=== PATIENT | male | born 1965 | race Caucasian/White ===

== ENCOUNTER 2021-03-24 20:22 | Inpatient (IN) | payer OTHER ==
[2021-03-24] MEDS: ALBUTEROL SO4 2.5/IPRATROPIUM 0.5 INH SOL 3 ML VIAL.NEB. NEB SCH ×2 (21:15→22:16)
[2021-03-24] MEDS ORDERED: DEXAMETHASONE SOD PHOSPHATE 10 MG/1 ML VIAL IVPUSH ONE (21:16)
[2021-03-24 22:28] LABS: BASO % 2.5 % (0-2.0); EOS % 0.4 % (0-4.5); HEMATOCRIT 37.8 % (35.4-49); HEMOGLOBIN 12.5 GM/dL (11.7-16.9); LYMPH % 9.6 % (8-40); MCH 29.7 pg (25.7-33.7); MEAN PLT VOLUME 8.6 fl (7.5-11.1); MONO % 10.3 % (3.8-10.2); NEUT % 77.2 % (42.8-82.8); PLATELET COUNT 225 10^3/uL (134-434); RDW 13.8 % (11.9-15.9)
[2021-03-24 22:34] LABS: INR 1.11 (0.83-1.09); PROTHROMBIN TIME (PATIENT) 12.4 SEC (9.7-13.0)
[2021-03-24 22:51] LABS: CHLORIDE 98 mmol/L (98-107); SODIUM 135 mmol/L (136-145)
[2021-03-24 22:55] LABS: ALBUMIN 3.4 g/dl (3.4-5.0); CALCIUM 9.1 mg/dL (8.5-10.1)
[2021-03-24 22:57] LABS: ANION GAP 8 MMOL/L (8-16); BLOOD UREA NITROGEN 16.2 mg/dL (7-18); CO2 29 mmol/L (21-32); GLUCOSE,RANDOM 228 mg/dL (74-106); MAGNESIUM 2.4 mg/dL (1.8-2.4)
[2021-03-24 22:58] LABS: CREATININE 0.8 mg/dL (0.55-1.3)
[2021-03-24 22:59] LABS: SGOT/AST 57 U/L (15-37); SGPT/ALT 92 U/L (13-61)
[2021-03-24 23:01] LABS: ALK PHOS 244 U/L (45-117); BILIRUBIN,TOTAL 0.7 mg/dL (0.2-1); TOT PROT 6.4 g/dl (6.4-8.2)
[2021-03-25] MEDS: ALBUTEROL SO4 2.5/IPRATROPIUM 0.5 INH SOL 3 ML VIAL.NEB. NEB SCH (09:55)
[2021-03-25] MEDS: propRANOLol HCL 10 MG TABLET PO SCH ×2 (09:55→21:42)
[2021-03-25] MEDS: methylPREDNISolone NA SUCC 40 MG/1 ML VIAL IVPUSH SCH ×2 (10:56→19:45)
[2021-03-25] MEDS: cloNIDine HCL 0.1 MG TABLET PO SCH ×2 (10:56→21:42)
[2021-03-25] MEDS: HEPARIN NA (PORCINE) 5,000 UNITS/ML 1ML VIAL SQ SCH ×2 (14:56→21:42)
[2021-03-25] MEDS ORDERED: propRANOLol HCL 10 MG TABLET ONE (14:59)
[2021-03-25] MEDS ORDERED: ALBUTEROL SO4 2.5/IPRATROPIUM 0.5 INH SOL 3 ML VIAL.NEB. NEB ONE (14:59)
[2021-03-25] MEDS ORDERED: cloNIDine HCL 0.1 MG TABLET ONE (14:59)
[2021-03-25] MEDS ORDERED: HEPARIN NA (PORCINE) 5,000 UNITS/ML 1ML VIAL ONE (15:00)
[2021-03-25] MEDS: LIDOCAINE 5% TOPICAL PATCH TP SCH (19:50)
[2021-03-25] MEDS: LIDOCAINE PATCH REMOVAL MC SCH (21:43)
[2021-03-26] MEDS: methylPREDNISolone NA SUCC 40 MG/1 ML VIAL IVPUSH SCH ×3 (03:31→17:05)
[2021-03-26] MEDS: ALBUTEROL SO4 2.5/IPRATROPIUM 0.5 INH SOL 3 ML VIAL.NEB. NEB PRN ×2 (03:46→11:20)
[2021-03-26] MEDS: HEPARIN NA (PORCINE) 5,000 UNITS/ML 1ML VIAL SQ SCH ×3 (05:39→21:14)
[2021-03-26] MEDS: cloNIDine HCL 0.1 MG TABLET PO SCH ×2 (09:40→21:13)
[2021-03-26] MEDS: propRANOLol HCL 10 MG TABLET PO SCH ×2 (09:41→20:52)
[2021-03-26] MEDS: LIDOCAINE 5% TOPICAL PATCH TP SCH (09:41)
[2021-03-26] MEDS: ALBUTEROL SO4 2.5/IPRATROPIUM 0.5 INH SOL 3 ML VIAL.NEB. NEB SCH ×3 (11:20→20:51)
[2021-03-26] MEDS ORDERED: cefTRIAXone SODIUM 1 GM VIAL ONE (12:24)
[2021-03-26] MEDS ORDERED: DEXTROSE 5%-WATER - 50 ML IVPB ONE (12:24)
[2021-03-26] MEDS: CEFTRIAXONE 1 GM in DEXTROSE 5%-WATER - 50 ML IVPB SCH (12:50)
[2021-03-26] MEDS: AZITHROMYCIN IVPB 500 MG/250 ML BAG IVPB SCH (13:28)
[2021-03-26] MEDS: LIDOCAINE PATCH REMOVAL MC SCH (21:37)
[2021-03-27] MEDS: methylPREDNISolone NA SUCC 40 MG/1 ML VIAL IVPUSH SCH ×2 (01:35→09:18)
[2021-03-27] MEDS: HEPARIN NA (PORCINE) 5,000 UNITS/ML 1ML VIAL SQ SCH ×3 (06:10→22:57)
[2021-03-27] MEDS: ALBUTEROL SO4 2.5/IPRATROPIUM 0.5 INH SOL 3 ML VIAL.NEB. NEB SCH ×4 (08:43→20:03)
[2021-03-27] MEDS ORDERED: cefTRIAXone SODIUM 1 GM VIAL ONE (08:51)
[2021-03-27] MEDS ORDERED: DEXTROSE 5%-WATER - 50 ML IVPB ONE (08:51)
[2021-03-27] MEDS: ACETAMINOPHEN 325 MG TABLET (FP) PO PRN ×2 (09:15→17:23)
[2021-03-27] MEDS: oxyCODONE HCL 5 MG TABLET PO PRN (09:15)
[2021-03-27] MEDS: CEFTRIAXONE 1 GM in DEXTROSE 5%-WATER - 50 ML IVPB SCH (09:17)
[2021-03-27] MEDS: LIDOCAINE 5% TOPICAL PATCH TP SCH (09:18)
[2021-03-27] MEDS: cloNIDine HCL 0.1 MG TABLET PO SCH ×2 (09:19→22:56)
[2021-03-27] MEDS: propRANOLol HCL 10 MG TABLET PO SCH ×2 (09:19→21:30)
[2021-03-27] MEDS: AZITHROMYCIN IVPB 500 MG/250 ML BAG IVPB SCH (10:16)
[2021-03-27] MEDS: LIDOCAINE PATCH REMOVAL MC SCH (22:58)
[2021-03-28] MEDS: oxyCODONE HCL 5 MG TABLET PO PRN ×4 (04:17→21:01)
[2021-03-28] MEDS: HEPARIN NA (PORCINE) 5,000 UNITS/ML 1ML VIAL SQ SCH ×3 (06:02→21:00)
[2021-03-28] MEDS: ALBUTEROL SO4 2.5/IPRATROPIUM 0.5 INH SOL 3 ML VIAL.NEB. NEB SCH ×4 (07:59→19:53)
[2021-03-28] MEDS: ACETAMINOPHEN 325 MG TABLET (FP) PO PRN ×2 (08:38→14:30)
[2021-03-28] MEDS: propRANOLol HCL 10 MG TABLET PO SCH ×2 (08:39→21:01)
[2021-03-28 09:20] LABS: BASO % 1.2 % (0-2.0); EOS % 0.2 % (0-4.5); HEMATOCRIT 40.1 % (35.4-49); HEMOGLOBIN 13.2 GM/dL (11.7-16.9); MCH 29.4 pg (25.7-33.7); MCHC 32.8 g/dl (32.0-35.9); MEAN CELL VOLUME 89.7 fl (80-96); MEAN PLT VOLUME 8.7 fl (7.5-11.1); MONO % 8.9 % (3.8-10.2); NEUT % 81.7 % (42.8-82.8); PLATELET COUNT 246 10^3/uL (134-434); RBC 4.47 M/mm3 (4.00-5.60); RDW 13.8 % (11.9-15.9); WHITE BLOOD COUNT 10.7 K/mm3 (4.0-10.0)
[2021-03-28 09:28] LABS: INR 1.1 (0.83-1.09); PROTHROMBIN TIME (PATIENT) 12.3 SEC (9.7-13.0)
[2021-03-28 09:30] LABS: ACTIVATED PTT 25.3 SECONDS (25.2-36.5)
[2021-03-28 09:35] LABS: ALBUMIN 3.2 g/dl (3.4-5.0); CALCIUM 9.3 mg/dL (8.5-10.1)
[2021-03-28 09:36] LABS: BLOOD UREA NITROGEN 14.8 mg/dL (7-18)
[2021-03-28 09:38] LABS: CREATININE 0.9 mg/dL (0.55-1.3); URIC ACID 7.5 mg/dL (2.6-7.2)
[2021-03-28 09:40] LABS: BILIRUBIN,TOTAL 0.8 mg/dL (0.2-1); TOT PROT 6.4 g/dl (6.4-8.2)
[2021-03-28] MEDS: LIDOCAINE 5% TOPICAL PATCH TP SCH (10:43)
[2021-03-28] MEDS: cloNIDine HCL 0.1 MG TABLET PO SCH ×2 (10:43→21:00)
[2021-03-28] MEDS ORDERED: PT OWN MED DRAWER 7, Y5N ONE (11:45)
[2021-03-28] MEDS: DEXAMETHASONE SOD PHOSPHATE 4 MG/1 ML VIAL IVPB SCH (21:00)
[2021-03-28] MEDS: LIDOCAINE PATCH REMOVAL MC SCH (21:02)
[2021-03-28] MEDS: levETIRAcetam 500 MG/5 ML INJECTION VIAL IVPB SCH (21:02)
[2021-03-28] MEDS: BUDESONIDE/FORMETEROL FUMARATE 160/4.5 mcg INHALER IH SCH (22:05)
[2021-03-29] MEDS: oxyCODONE HCL 5 MG TABLET PO PRN ×5 (02:10→20:13)
[2021-03-29] MEDS: SENNOSIDES 8.6MG TABLET (FP) PO PRN (02:10)
[2021-03-29] MEDS: ACETAMINOPHEN 325 MG TABLET (FP) PO PRN ×3 (03:49→17:02)
[2021-03-29] MEDS: HEPARIN NA (PORCINE) 5,000 UNITS/ML 1ML VIAL SQ SCH ×3 (05:46→21:07)
[2021-03-29] MEDS: cloNIDine HCL 0.1 MG TABLET PO SCH ×3 (06:48→21:07)
[2021-03-29] MEDS: ALBUTEROL SO4 2.5/IPRATROPIUM 0.5 INH SOL 3 ML VIAL.NEB. NEB SCH ×4 (08:43→19:42)
[2021-03-29] MEDS: DEXAMETHASONE SOD PHOSPHATE 4 MG/1 ML VIAL IVPB SCH ×2 (09:38→21:07)
[2021-03-29] MEDS: levETIRAcetam 500 MG/5 ML INJECTION VIAL IVPB SCH ×2 (09:38→21:48)
[2021-03-29] MEDS: propRANOLol HCL 10 MG TABLET PO SCH ×2 (09:38→21:07)
[2021-03-29] MEDS: LIDOCAINE 5% TOPICAL PATCH TP SCH (09:43)
[2021-03-29] MEDS: BUDESONIDE/FORMETEROL FUMARATE 160/4.5 mcg INHALER IH SCH ×2 (09:51→21:08)
[2021-03-29] MEDS: TIOTROPIUM BROMIDE 2.5 MCG (SPIRIVA) RESPIMAT INHALER IH SCH (09:51)
[2021-03-29] MEDS ORDERED: ACETAMINOPHEN 325 MG TABLET (FP) PO ONE (20:25)
[2021-03-29] MEDS: LIDOCAINE PATCH REMOVAL MC SCH (21:07)
[2021-03-30] MEDS: oxyCODONE HCL 5 MG TABLET PO PRN ×6 (03:23→21:39)
[2021-03-30] MEDS: HEPARIN NA (PORCINE) 5,000 UNITS/ML 1ML VIAL SQ SCH ×3 (06:22→21:35)
[2021-03-30] MEDS: ALBUTEROL SO4 2.5/IPRATROPIUM 0.5 INH SOL 3 ML VIAL.NEB. NEB PRN ×2 (06:43→20:51)
[2021-03-30] MEDS: ALBUTEROL SO4 2.5/IPRATROPIUM 0.5 INH SOL 3 ML VIAL.NEB. NEB SCH (08:30)
[2021-03-30] MEDS: propRANOLol HCL 10 MG TABLET PO SCH ×2 (08:38→21:35)
[2021-03-30] MEDS: cloNIDine HCL 0.1 MG TABLET PO SCH ×2 (10:25→21:35)
[2021-03-30] MEDS: levETIRAcetam 500 MG/5 ML INJECTION VIAL IVPB SCH ×2 (10:25→21:38)
[2021-03-30] MEDS: DEXAMETHASONE SOD PHOSPHATE 4 MG/1 ML VIAL IVPB SCH ×2 (10:25→21:37)
[2021-03-30] MEDS: TIOTROPIUM BROMIDE 2.5 MCG (SPIRIVA) RESPIMAT INHALER IH SCH (10:26)
[2021-03-30] MEDS: LIDOCAINE 5% TOPICAL PATCH TP SCH (10:26)
[2021-03-30] MEDS: BUDESONIDE/FORMETEROL FUMARATE 160/4.5 mcg INHALER IH SCH ×2 (10:26→21:39)
[2021-03-30] MEDS: ALLOPURINOL 300 MG TABLET (FP) PO SCH (21:35)
[2021-03-30] MEDS: LIDOCAINE PATCH REMOVAL MC SCH (21:39)
[2021-03-31] MEDS: oxyCODONE HCL 5 MG TABLET PO PRN ×4 (03:11→19:54)
[2021-03-31 04:16] LABS: INR 1.03 (0.83-1.09); PROTHROMBIN TIME (PATIENT) 11.9 SEC (9.7-13.0)
[2021-03-31 04:19] LABS: ACTIVATED PTT 26.3 SECONDS (25.2-36.5)
[2021-03-31] MEDS: HEPARIN NA (PORCINE) 5,000 UNITS/ML 1ML VIAL SQ SCH ×3 (05:21→22:05)
[2021-03-31] MEDS ORDERED: morphine SULFATE 4 MG/ML VIAL IVPUSH ONE (07:47)
[2021-03-31 08:21] LABS: BASO % 0.9 % (0-2.0); EOS % 0.1 % (0-4.5); HEMATOCRIT 34.4 % (35.4-49); HEMOGLOBIN 11.8 GM/dL (11.7-16.9); LYMPH % 6.9 % (8-40); MCH 30.6 pg (25.7-33.7); MCHC 34.3 g/dl (32.0-35.9); MEAN CELL VOLUME 89.2 fl (80-96); MEAN PLT VOLUME 8.6 fl (7.5-11.1); MONO % 8.1 % (3.8-10.2); PLATELET COUNT 184 10^3/uL (134-434); RBC 3.86 M/mm3 (4.00-5.60); RDW 14.2 % (11.9-15.9); WHITE BLOOD COUNT 9.2 K/mm3 (4.0-10.0)
[2021-03-31 08:57] LABS: CHLORIDE 96 mmol/L (98-107); SODIUM 135 mmol/L (136-145)
[2021-03-31 09:07] LABS: CALCIUM 8.9 mg/dL (8.5-10.1)
[2021-03-31 09:08] LABS: ANION GAP 11 MMOL/L (8-16); CO2 28 mmol/L (21-32); GLUCOSE,RANDOM 180 mg/dL (74-106)
[2021-03-31 09:10] LABS: CREATININE 0.7 mg/dL (0.55-1.3)
[2021-03-31 09:11] LABS: SGOT/AST 74 U/L (15-37); SGPT/ALT 172 U/L (13-61)
[2021-03-31 09:12] LABS: TOT PROT 5.8 g/dl (6.4-8.2)
[2021-03-31 09:14] LABS: ALK PHOS 279 U/L (45-117)
[2021-03-31 10:42] LABS: PHOSPHOROUS 3.3 mg/dL (2.5-4.9)
[2021-03-31 10:43] LABS: LDH 862 U/L (87-246)
[2021-03-31] MEDS: cloNIDine HCL 0.1 MG TABLET PO SCH ×2 (10:44→22:05)
[2021-03-31] MEDS: ALLOPURINOL 300 MG TABLET (FP) PO SCH (10:44)
[2021-03-31] MEDS: LIDOCAINE 5% TOPICAL PATCH TP SCH (10:44)
[2021-03-31] MEDS: levETIRAcetam 500 MG/5 ML INJECTION VIAL IVPB SCH ×2 (10:44→22:05)
[2021-03-31] MEDS: propRANOLol HCL 10 MG TABLET PO SCH ×2 (10:44→22:06)
[2021-03-31] MEDS: PANTOPRAZOLE SODIUM 40 MG VIAL IVPB SCH ×2 (10:44)
[2021-03-31] MEDS: SODIUM CHLORIDE 1,000 ML IV SCH (10:44)
[2021-03-31] MEDS: DEXAMETHASONE SOD PHOSPHATE 4 MG/1 ML VIAL IVPB SCH (10:44)
[2021-03-31] MEDS: TIOTROPIUM BROMIDE 2.5 MCG (SPIRIVA) RESPIMAT INHALER IH SCH (10:45)
[2021-03-31] MEDS: BUDESONIDE/FORMETEROL FUMARATE 160/4.5 mcg INHALER IH SCH ×2 (10:45→22:06)
[2021-03-31] MEDS ORDERED: FOSAPREPITANT DIMEGLUMINE 150 MG in SODIUM CHLORIDE 145 ML IVPB ONE (14:00)
[2021-03-31] MEDS ORDERED: DEXAMETHASONE SOD PHOSPHATE 20 MG/5 ML VIAL IVPB ONE (14:00)
[2021-03-31] MEDS ORDERED: PALONOSETRON HCL 0.25 MG/5 ML VIAL IVPUSH ONE (14:00)
[2021-03-31] MEDS ORDERED: DEXAMETHASONE INJECTION 12 MG in SODIUM CHLORIDE 50 ML IVPUSH ONE (14:15)
[2021-03-31] MEDS ORDERED: SODIUM CHLORIDE IVPB ONE (14:30)
[2021-03-31] MEDS ORDERED: CARBOPLATIN IVPB ONE (14:30)
[2021-03-31] MEDS ORDERED: ETOPOSIDE IV ONE ×2 (15:00→17:30)
[2021-03-31] MEDS ORDERED: SODIUM CHLORIDE IV ONE ×2 (15:00→17:30)
[2021-03-31] MEDS: ALBUTEROL SO4 2.5/IPRATROPIUM 0.5 INH SOL 3 ML VIAL.NEB. NEB PRN (20:09)
[2021-03-31] MEDS: LIDOCAINE PATCH REMOVAL MC SCH (22:06)
[2021-04-01] MEDS: oxyCODONE HCL 5 MG TABLET PO PRN ×3 (00:43→18:46)
[2021-04-01] MEDS: DEXAMETHASONE SOD PHOSPHATE 4 MG/1 ML VIAL IVPB SCH ×3 (01:01→21:40)
[2021-04-01] MEDS: HEPARIN NA (PORCINE) 5,000 UNITS/ML 1ML VIAL SQ SCH ×3 (06:47→21:40)
[2021-04-01] MEDS: ALBUTEROL SO4 2.5/IPRATROPIUM 0.5 INH SOL 3 ML VIAL.NEB. NEB PRN (07:20)
[2021-04-01 08:33] LABS: HEMATOCRIT 34.9 % (35.4-49); HEMOGLOBIN 11.4 GM/dL (11.7-16.9); MCH 29.6 pg (25.7-33.7); MCHC 32.7 g/dl (32.0-35.9); MEAN CELL VOLUME 90.3 fl (80-96); MEAN PLT VOLUME 8.9 fl (7.5-11.1); PLATELET COUNT 195 10^3/uL (134-434); RBC 3.86 M/mm3 (4.00-5.60); RDW 14.2 % (11.9-15.9); WHITE BLOOD COUNT 11.7 K/mm3 (4.0-10.0)
[2021-04-01 08:56] LABS: BLOOD UREA NITROGEN 16.7 mg/dL (7-18); CALCIUM 8.7 mg/dL (8.5-10.1)
[2021-04-01 08:59] LABS: CREATININE 0.7 mg/dL (0.55-1.3); URIC ACID 4.4 mg/dL (2.6-7.2)
[2021-04-01 09:01] LABS: TOT PROT 5.9 g/dl (6.4-8.2)
[2021-04-01] MEDS: cloNIDine HCL 0.1 MG TABLET PO SCH ×2 (09:02→21:40)
[2021-04-01] MEDS: ALLOPURINOL 300 MG TABLET (FP) PO SCH (09:03)
[2021-04-01] MEDS: PANTOPRAZOLE SODIUM 40 MG VIAL IVPB SCH (09:03)
[2021-04-01] MEDS: SODIUM CHLORIDE 1,000 ML IV SCH ×2 (09:03→16:15)
[2021-04-01] MEDS: propRANOLol HCL 10 MG TABLET PO SCH ×2 (09:03→21:40)
[2021-04-01] MEDS: levETIRAcetam 500 MG/5 ML INJECTION VIAL IVPB SCH ×2 (09:03→23:01)
[2021-04-01] MEDS: TIOTROPIUM BROMIDE 2.5 MCG (SPIRIVA) RESPIMAT INHALER IH SCH (09:04)
[2021-04-01] MEDS: LIDOCAINE 5% TOPICAL PATCH TP SCH (09:04)
[2021-04-01] MEDS: BUDESONIDE/FORMETEROL FUMARATE 160/4.5 mcg INHALER IH SCH ×2 (09:04→21:50)
[2021-04-01] MEDS: INSULIN (LEVEMIR) 100 UNITS/ML UNITS SQ SCH ×2 (11:10→21:40)
[2021-04-01 12:10] LABS: ANISOCYTOSIS 0; HELMET CELLS 0; HOWELL-JOLLY BODIES 0; MACROCYTOSIS 0; OVALOCYTE 0; PLATELET ESTIMATE NORMAL; ROULEAU 0; SICKELED CELLS 0; TARGET CELLS 0; TEAR DROP CELLS 0; TOXIC GRANULATION 0
[2021-04-01] MEDS: amLODIPine BESYLATE 10 MG TABLET (FP) PO SCH (12:29)
[2021-04-01] MEDS: INSULIN SLIDING SCALE (NOVOLOG) 1 VIAL SQ SCH ×2 (16:28→21:39)
[2021-04-01] MEDS: LIDOCAINE PATCH REMOVAL MC SCH (21:50)
[2021-04-02] MEDS: HEPARIN NA (PORCINE) 5,000 UNITS/ML 1ML VIAL SQ SCH ×3 (05:30→21:00)
[2021-04-02] MEDS: oxyCODONE HCL 5 MG TABLET PO PRN ×4 (05:58→19:53)
[2021-04-02] MEDS: INSULIN SLIDING SCALE (NOVOLOG) 1 VIAL SQ SCH ×4 (06:00→21:00)
[2021-04-02] MEDS: INSULIN (LEVEMIR) 100 UNITS/ML UNITS SQ SCH ×2 (06:00→21:01)
[2021-04-02] MEDS: ALBUTEROL SO4 2.5/IPRATROPIUM 0.5 INH SOL 3 ML VIAL.NEB. NEB PRN (07:30)
[2021-04-02] MEDS: propRANOLol HCL 10 MG TABLET PO SCH ×2 (08:41→21:00)
[2021-04-02] MEDS: levETIRAcetam 500 MG/5 ML INJECTION VIAL IVPB SCH ×2 (09:42→22:36)
[2021-04-02] MEDS: DEXAMETHASONE SOD PHOSPHATE 4 MG/1 ML VIAL IVPB SCH ×2 (09:42→21:00)
[2021-04-02] MEDS: amLODIPine BESYLATE 10 MG TABLET (FP) PO SCH (09:42)
[2021-04-02] MEDS: LIDOCAINE 5% TOPICAL PATCH TP SCH (09:42)
[2021-04-02] MEDS: ALLOPURINOL 300 MG TABLET (FP) PO SCH (09:42)
[2021-04-02] MEDS: cloNIDine HCL 0.1 MG TABLET PO SCH ×2 (09:42→21:00)
[2021-04-02] MEDS: BUDESONIDE/FORMETEROL FUMARATE 160/4.5 mcg INHALER IH SCH ×2 (09:42→21:07)
[2021-04-02] MEDS: PANTOPRAZOLE SODIUM 40 MG VIAL IVPB SCH (09:42)
[2021-04-02] MEDS: TIOTROPIUM BROMIDE 2.5 MCG (SPIRIVA) RESPIMAT INHALER IH SCH (09:42)
[2021-04-02] MEDS ORDERED: PT OWN MED DRAWER 7, Y5N ONE (11:55)
[2021-04-02] MEDS: SODIUM CHLORIDE 1,000 ML IV SCH (12:20)
[2021-04-02 16:29] VITALS: BMI 22.7
[2021-04-02 17:53] LABS: BASO % 0.2 % (0-2.0); EOS % 0.1 % (0-4.5); HEMATOCRIT 35.4 % (35.4-49); HEMOGLOBIN 11.5 GM/dL (11.7-16.9); LYMPH % 3.9 % (8-40); MCH 29.5 pg (25.7-33.7); MCHC 32.6 g/dl (32.0-35.9); MEAN CELL VOLUME 90.5 fl (80-96); MEAN PLT VOLUME 9.1 fl (7.5-11.1); MONO % 5.1 % (3.8-10.2); NEUT % 90.7 % (42.8-82.8); PLATELET COUNT 187 10^3/uL (134-434); RDW 14.4 % (11.9-15.9); WHITE BLOOD COUNT 11.5 K/mm3 (4.0-10.0)
[2021-04-02] MEDS: AMINO ACIDS/PROTEIN HYDROLYS 30 ML LIQUID.PKT PO SCH ×2 (17:53→17:54)
[2021-04-02 18:02] LABS: CALCIUM 8.4 mg/dL (8.5-10.1)
[2021-04-02 18:03] LABS: BLOOD UREA NITROGEN 14.6 mg/dL (7-18)
[2021-04-02 18:06] LABS: CREATININE 0.5 mg/dL (0.55-1.3)
[2021-04-02] MEDS ORDERED: INSULIN (NOVOLOG) ASPART 100 UNITS/ML 10ML VIAL ONE (20:54)
[2021-04-02] MEDS: LIDOCAINE PATCH REMOVAL MC SCH (21:07)
[2021-04-03] MEDS ORDERED: ALBUTEROL SO4 HFA INHALER IH PRN (00:36)
[2021-04-03] MEDS: oxyCODONE HCL 5 MG TABLET PO PRN ×3 (02:22→22:17)
[2021-04-03] MEDS: INSULIN (LEVEMIR) 100 UNITS/ML UNITS SQ SCH ×2 (06:51→22:20)
[2021-04-03] MEDS: INSULIN SLIDING SCALE (NOVOLOG) 1 VIAL SQ SCH ×4 (06:51→23:53)
[2021-04-03] MEDS: HEPARIN NA (PORCINE) 5,000 UNITS/ML 1ML VIAL SQ SCH ×3 (06:51→22:19)
[2021-04-03 08:01] LABS: HEMOGLOBIN 11.5 GM/dL (11.7-16.9); MCH 29.9 pg (25.7-33.7); MCHC 32.9 g/dl (32.0-35.9); MEAN CELL VOLUME 90.9 fl (80-96); MEAN PLT VOLUME 8.6 fl (7.5-11.1); PLATELET COUNT 156 10^3/uL (134-434); RBC 3.85 M/mm3 (4.00-5.60); RDW 14.1 % (11.9-15.9); WHITE BLOOD COUNT 8.6 K/mm3 (4.0-10.0)
[2021-04-03 09:14] LABS: ALBUMIN 3.1 g/dl (3.4-5.0); BILIRUBIN,TOTAL 1.3 mg/dL (0.2-1); BLOOD UREA NITROGEN 12.7 mg/dL (7-18); CALCIUM 8.6 mg/dL (8.5-10.1); CREATININE 0.5 mg/dL (0.55-1.3)
[2021-04-03 10:30] LABS: ANISOCYTOSIS 2+; MACROCYTOSIS 0; PLATELET ESTIMATE DECREASED
[2021-04-03] MEDS: ALLOPURINOL 300 MG TABLET (FP) PO SCH (11:25)
[2021-04-03] MEDS: DEXAMETHASONE SOD PHOSPHATE 4 MG/1 ML VIAL IVPB SCH ×2 (11:25→22:19)
[2021-04-03] MEDS: PANTOPRAZOLE SODIUM 40 MG VIAL IVPB SCH (11:25)
[2021-04-03] MEDS: propRANOLol HCL 10 MG TABLET PO SCH ×2 (11:26→22:22)
[2021-04-03] MEDS: cloNIDine HCL 0.1 MG TABLET PO SCH ×2 (11:26→22:22)
[2021-04-03] MEDS: levETIRAcetam 500 MG/5 ML INJECTION VIAL IVPB SCH ×2 (11:27→22:25)
[2021-04-03] MEDS: AMINO ACIDS/PROTEIN HYDROLYS 30 ML LIQUID.PKT PO SCH ×2 (11:27→18:21)
[2021-04-03] MEDS: LIDOCAINE 5% TOPICAL PATCH TP SCH (11:27)
[2021-04-03] MEDS: BUDESONIDE/FORMETEROL FUMARATE 160/4.5 mcg INHALER IH SCH ×2 (11:28→22:23)
[2021-04-03] MEDS: amLODIPine BESYLATE 10 MG TABLET (FP) PO SCH (11:28)
[2021-04-03] MEDS: TIOTROPIUM BROMIDE 2.5 MCG (SPIRIVA) RESPIMAT INHALER IH SCH (11:28)
[2021-04-03] MEDS ORDERED: REMDESIVIR 200 MG in SODIUM CHLORIDE 250 ML IVPB ONE (12:00)
[2021-04-03] MEDS ORDERED: ALBUTEROL SO4 HFA INHALER IH SCH (12:00)
[2021-04-03 14:35] LABS: MAGNESIUM 2.2 mg/dL (1.8-2.4)
[2021-04-03 14:38] LABS: URIC ACID 3.4 mg/dL (2.6-7.2)
[2021-04-03 14:39] LABS: PHOSPHOROUS 3.4 mg/dL (2.5-4.9)
[2021-04-03] MEDS: SODIUM CHLORIDE 1,000 ML IV SCH (18:21)
[2021-04-03] MEDS: LIDOCAINE PATCH REMOVAL MC SCH (22:20)
[2021-04-04] MEDS: SENNOSIDES 8.6MG TABLET (FP) PO PRN (05:18)
[2021-04-04] MEDS: HEPARIN NA (PORCINE) 5,000 UNITS/ML 1ML VIAL SQ SCH ×3 (05:19→22:07)
[2021-04-04] MEDS: INSULIN SLIDING SCALE (NOVOLOG) 1 VIAL SQ SCH ×5 (06:40→22:19)
[2021-04-04] MEDS: INSULIN (LEVEMIR) 100 UNITS/ML UNITS SQ SCH ×2 (06:40→22:09)
[2021-04-04 08:52] LABS: HEMATOCRIT 30.3 % (35.4-49); HEMOGLOBIN 10.4 GM/dL (11.7-16.9); MCH 30.7 pg (25.7-33.7); MCHC 34.4 g/dl (32.0-35.9); MEAN CELL VOLUME 89.3 fl (80-96); MEAN PLT VOLUME 8.7 fl (7.5-11.1); PLATELET COUNT 127 10^3/uL (134-434); RDW 13.9 % (11.9-15.9); WHITE BLOOD COUNT 6.5 K/mm3 (4.0-10.0)
[2021-04-04 09:32] LABS: ALBUMIN 2.7 g/dl (3.4-5.0); CALCIUM 8.5 mg/dL (8.5-10.1)
[2021-04-04 09:33] LABS: BLOOD UREA NITROGEN 11.7 mg/dL (7-18)
[2021-04-04] MEDS: AMINO ACIDS/PROTEIN HYDROLYS 30 ML LIQUID.PKT PO SCH ×2 (09:33→16:30)
[2021-04-04] MEDS: amLODIPine BESYLATE 10 MG TABLET (FP) PO SCH (09:33)
[2021-04-04] MEDS: propRANOLol HCL 10 MG TABLET PO SCH ×2 (09:33→22:08)
[2021-04-04] MEDS: PANTOPRAZOLE SODIUM 40 MG VIAL IVPB SCH (09:33)
[2021-04-04] MEDS: LIDOCAINE 5% TOPICAL PATCH TP SCH (09:33)
[2021-04-04] MEDS: ALLOPURINOL 300 MG TABLET (FP) PO SCH (09:33)
[2021-04-04] MEDS: levETIRAcetam 500 MG/5 ML INJECTION VIAL IVPB SCH ×2 (09:33→22:03)
[2021-04-04] MEDS: DEXAMETHASONE SOD PHOSPHATE 4 MG/1 ML VIAL IVPB SCH ×2 (09:33→22:06)
[2021-04-04] MEDS: cloNIDine HCL 0.1 MG TABLET PO SCH ×2 (09:33→22:08)
[2021-04-04] MEDS: TIOTROPIUM BROMIDE 2.5 MCG (SPIRIVA) RESPIMAT INHALER IH SCH (09:34)
[2021-04-04] MEDS: BUDESONIDE/FORMETEROL FUMARATE 160/4.5 mcg INHALER IH SCH ×2 (09:34→22:08)
[2021-04-04 09:35] LABS: CREATININE 0.4 mg/dL (0.55-1.3)
[2021-04-04 09:36] LABS: BILIRUBIN,TOTAL 0.8 mg/dL (0.2-1)
[2021-04-04 09:37] LABS: TOT PROT 5.3 g/dl (6.4-8.2)
[2021-04-04 09:46] LABS: ANISOCYTOSIS 0; HELMET CELLS 0; HOWELL-JOLLY BODIES 0; MACROCYTOSIS 0; OVALOCYTE 0; PLATELET ESTIMATE DECREASED; ROULEAU 0; SICKELED CELLS 0; TARGET CELLS 0; TEAR DROP CELLS 0; TOXIC GRANULATION 0
[2021-04-04] MEDS ORDERED: SOTROVIMAB 500 MG in SODIUM CHLORIDE 100 ML IVPB ONE (09:55)
[2021-04-04] MEDS: REMDESIVIR 100 MG in SODIUM CHLORIDE 250 ML IVPB SCH (12:13)
[2021-04-04] MEDS: SODIUM CHLORIDE 1,000 ML IV SCH ×2 (13:09→22:03)
[2021-04-04] MEDS: oxyCODONE HCL 5 MG TABLET PO PRN (19:50)
[2021-04-04] MEDS ORDERED: INSULIN (NOVOLOG) ASPART 100 UNITS/ML 10ML VIAL ONE (21:36)
[2021-04-04] MEDS: LISINOPRIL 20 MG TABLET PO SCH (22:08)
[2021-04-04] MEDS: LIDOCAINE PATCH REMOVAL MC SCH (22:10)
[2021-04-05] MEDS: HEPARIN NA (PORCINE) 5,000 UNITS/ML 1ML VIAL SQ SCH ×2 (06:06→13:56)
[2021-04-05] MEDS: oxyCODONE HCL 5 MG TABLET PO PRN ×3 (06:06→22:57)
[2021-04-05] MEDS: INSULIN (LEVEMIR) 100 UNITS/ML UNITS SQ SCH ×2 (06:07→21:39)
[2021-04-05] MEDS: INSULIN SLIDING SCALE (NOVOLOG) 1 VIAL SQ SCH ×4 (06:16→21:48)
[2021-04-05 08:32] LABS: HEMATOCRIT 31.6 % (35.4-49); HEMOGLOBIN 10.7 GM/dL (11.7-16.9); MCH 30.3 pg (25.7-33.7); MCHC 33.8 g/dl (32.0-35.9); MEAN CELL VOLUME 89.5 fl (80-96); MEAN PLT VOLUME 8.3 fl (7.5-11.1); PLATELET COUNT 167 10^3/uL (134-434); RBC 3.53 M/mm3 (4.00-5.60); RDW 14.3 % (11.9-15.9); WHITE BLOOD COUNT 8.3 K/mm3 (4.0-10.0)
[2021-04-05 09:02] LABS: BLOOD UREA NITROGEN 10.7 mg/dL (7-18); CALCIUM 8.4 mg/dL (8.5-10.1)
[2021-04-05 09:03] LABS: BILIRUBIN,TOTAL 0.7 mg/dL (0.2-1); TOT PROT 5.7 g/dl (6.4-8.2)
[2021-04-05 09:05] LABS: CREATININE 0.4 mg/dL (0.55-1.3)
[2021-04-05] MEDS: LIDOCAINE 5% TOPICAL PATCH TP SCH (10:03)
[2021-04-05] MEDS: AMINO ACIDS/PROTEIN HYDROLYS 30 ML LIQUID.PKT PO SCH ×2 (10:03→16:56)
[2021-04-05] MEDS: PANTOPRAZOLE SODIUM 40 MG VIAL IVPB SCH (10:04)
[2021-04-05] MEDS: amLODIPine BESYLATE 10 MG TABLET (FP) PO SCH (10:06)
[2021-04-05] MEDS: propRANOLol HCL 10 MG TABLET PO SCH ×2 (10:06→20:41)
[2021-04-05] MEDS: cloNIDine HCL 0.1 MG TABLET PO SCH ×2 (10:06→21:49)
[2021-04-05] MEDS: ALLOPURINOL 300 MG TABLET (FP) PO SCH (10:06)
[2021-04-05] MEDS: DEXAMETHASONE SOD PHOSPHATE 4 MG/1 ML VIAL IVPB SCH ×2 (10:07→22:29)
[2021-04-05] MEDS: SODIUM CHLORIDE 1,000 ML IV SCH ×2 (10:07→21:34)
[2021-04-05] MEDS: BUDESONIDE/FORMETEROL FUMARATE 160/4.5 mcg INHALER IH SCH ×2 (10:14→21:50)
[2021-04-05] MEDS: TIOTROPIUM BROMIDE 2.5 MCG (SPIRIVA) RESPIMAT INHALER IH SCH (10:15)
[2021-04-05] MEDS: levETIRAcetam 500 MG/5 ML INJECTION VIAL IVPB SCH ×2 (11:12→21:34)
[2021-04-05 11:36] LABS: ANISOCYTOSIS 0; MACROCYTOSIS 0; PLATELET ESTIMATE NORMAL
[2021-04-05] MEDS: REMDESIVIR 100 MG in SODIUM CHLORIDE 250 ML IVPB SCH (12:27)
[2021-04-05] MEDS ORDERED: DEXAMETHASONE SODIUM PHOSPHATE 10 MG in SODIUM CHLORIDE 50 ML IVPB ONE (14:00)
[2021-04-05] MEDS ORDERED: PALONOSETRON HCL 0.25 MG/5 ML VIAL IVPUSH ONE (14:00)
[2021-04-05] MEDS ORDERED: ETOPOSIDE 190 MG in SODIUM CHLORIDE 0.9% 500 ML IV ONE (14:30)
[2021-04-05] MEDS ORDERED: LACTATED RINGERS SOLUTION 1,000 ML/1,000 ML INFUS.BAG IV SCH (16:45)
[2021-04-05] MEDS ORDERED: INSULIN (NOVOLOG) ASPART 100 UNITS/ML 10ML VIAL ONE (21:17)
[2021-04-05] MEDS: LISINOPRIL 20 MG TABLET PO SCH (21:37)
[2021-04-05] MEDS: SENNOSIDES 8.6MG TABLET (FP) PO SCH (21:37)
[2021-04-05] MEDS: LIDOCAINE PATCH REMOVAL MC SCH (21:50)
[2021-04-06] MEDS: ALBUTEROL SO4 HFA INHALER IH PRN ×3 (06:04→18:09)
[2021-04-06] MEDS: oxyCODONE HCL 5 MG TABLET PO PRN ×2 (06:04→11:41)
[2021-04-06] MEDS: INSULIN SLIDING SCALE (NOVOLOG) 1 VIAL SQ SCH ×4 (06:06→22:31)
[2021-04-06] MEDS: INSULIN (LEVEMIR) 100 UNITS/ML UNITS SQ SCH ×2 (06:08→22:30)
[2021-04-06 07:55] LABS: HEMOGLOBIN 10.5 GM/dL (11.7-16.9); MCH 29.7 pg (25.7-33.7); MCHC 32.8 g/dl (32.0-35.9); MEAN CELL VOLUME 90.5 fl (80-96); MEAN PLT VOLUME 8.7 fl (7.5-11.1); PLATELET COUNT 157 10^3/uL (134-434); RBC 3.53 M/mm3 (4.00-5.60); RDW 13.9 % (11.9-15.9); WHITE BLOOD COUNT 9.8 K/mm3 (4.0-10.0)
[2021-04-06 08:10] LABS: CALCIUM 8.2 mg/dL (8.5-10.1)
[2021-04-06 08:11] LABS: ALBUMIN 2.8 g/dl (3.4-5.0); BLOOD UREA NITROGEN 13.2 mg/dL (7-18)
[2021-04-06 08:13] LABS: URIC ACID 2.9 mg/dL (2.6-7.2)
[2021-04-06 08:14] LABS: CREATININE 0.4 mg/dL (0.55-1.3)
[2021-04-06 08:15] LABS: BILIRUBIN,TOTAL 0.8 mg/dL (0.2-1); TOT PROT 5.6 g/dl (6.4-8.2)
[2021-04-06] MEDS ORDERED: POTASSIUM CHLORIDE 20 MEQ PREMIX IVPB 100 ML IVPB ONE (08:20)
[2021-04-06] MEDS ORDERED: POTASSIUM CHLORIDE ORAL LIQUID 20 MEQ/15 ML PO ONE (09:15)
[2021-04-06] MEDS: AMINO ACIDS/PROTEIN HYDROLYS 30 ML LIQUID.PKT PO SCH ×2 (09:26→17:19)
[2021-04-06] MEDS: POLYETHYLENE GLYCOL (HEALTHYLAX) 3350 17 GM PACKET PO SCH (09:26)
[2021-04-06] MEDS: KCL 10 MEQ IVPB 10 MEQ/100 ML INFUS.BAG IVPB SCH ×2 (09:26→11:27)
[2021-04-06] MEDS: LIDOCAINE 5% TOPICAL PATCH TP SCH (09:26)
[2021-04-06] MEDS: PANTOPRAZOLE SODIUM 40 MG VIAL IVPB SCH (09:27)
[2021-04-06] MEDS: DEXAMETHASONE SOD PHOSPHATE 4 MG/1 ML VIAL IVPB SCH ×2 (09:27→23:37)
[2021-04-06] MEDS: amLODIPine BESYLATE 10 MG TABLET (FP) PO SCH (09:27)
[2021-04-06] MEDS: ENOXAPARIN NA (PORCINE) 40 MG/0.4 ML DISP.SYRIN SQ SCH (09:27)
[2021-04-06] MEDS: cloNIDine HCL 0.1 MG TABLET PO SCH ×2 (09:28→22:33)
[2021-04-06] MEDS: ALLOPURINOL 300 MG TABLET (FP) PO SCH (09:28)
[2021-04-06] MEDS: levETIRAcetam 500 MG/5 ML INJECTION VIAL IVPB SCH ×2 (09:28→22:24)
[2021-04-06] MEDS: propRANOLol HCL 10 MG TABLET PO SCH ×2 (09:28→22:27)
[2021-04-06] MEDS: SODIUM CHLORIDE 1,000 ML IV SCH (09:29)
[2021-04-06] MEDS: BUDESONIDE/FORMETEROL FUMARATE 160/4.5 mcg INHALER IH SCH ×2 (09:48→22:33)
[2021-04-06 10:14] LABS: ANISOCYTOSIS 2+; MACROCYTOSIS 0; OVALOCYTE 1+; PLATELET ESTIMATE DECREASED
[2021-04-06] MEDS: TIOTROPIUM BROMIDE 2.5 MCG (SPIRIVA) RESPIMAT INHALER IH SCH (10:29)
[2021-04-06] MEDS ORDERED: DOCUSATE SODIUM 100 MG CAPSULE (FP) PO PRN (11:44)
[2021-04-06] MEDS ORDERED: FENTANYL PATCH WASTE MC PRN (11:44)
[2021-04-06] MEDS ORDERED: fentaNYL 12mcg/hr PATCH.TD72 TD SCH (11:45)
[2021-04-06] MEDS: REMDESIVIR 100 MG in SODIUM CHLORIDE 250 ML IVPB SCH (12:32)
[2021-04-06] MEDS ORDERED: PALONOSETRON HCL 0.25 MG/5 ML VIAL IVPUSH ONE (14:00)
[2021-04-06] MEDS ORDERED: ETOPOSIDE 190 MG in SODIUM CHLORIDE 0.9% 500 ML IV ONE (14:30)
[2021-04-06] MEDS ORDERED: INSULIN (NOVOLOG) ASPART 100 UNITS/ML 10ML VIAL ONE (17:15)
[2021-04-06] MEDS: LISINOPRIL 20 MG TABLET PO SCH (22:27)
[2021-04-06] MEDS: SENNOSIDES 8.6MG TABLET (FP) PO SCH (22:27)
[2021-04-06] MEDS: LIDOCAINE PATCH REMOVAL MC SCH (22:35)
[2021-04-07] MEDS: SODIUM CHLORIDE 1,000 ML IV SCH ×2 (06:21→09:46)
[2021-04-07] MEDS: INSULIN (LEVEMIR) 100 UNITS/ML UNITS SQ SCH ×2 (06:27→21:12)
[2021-04-07] MEDS: INSULIN SLIDING SCALE (NOVOLOG) 1 VIAL SQ SCH ×4 (06:28→21:13)
[2021-04-07 08:50] LABS: HEMATOCRIT 32.4 % (35.4-49); HEMOGLOBIN 10.7 GM/dL (11.7-16.9); MCH 29.8 pg (25.7-33.7); MCHC 32.9 g/dl (32.0-35.9); MEAN CELL VOLUME 90.6 fl (80-96); MEAN PLT VOLUME 8.2 fl (7.5-11.1); PLATELET COUNT 140 10^3/uL (134-434); RBC 3.58 M/mm3 (4.00-5.60); RDW 14.1 % (11.9-15.9); WHITE BLOOD COUNT 7.7 K/mm3 (4.0-10.0)
[2021-04-07 09:11] LABS: CHLORIDE 97 mmol/L (98-107); SODIUM 139 mmol/L (136-145)
[2021-04-07 09:15] LABS: CALCIUM 8.2 mg/dL (8.5-10.1)
[2021-04-07 09:16] LABS: ALBUMIN 2.8 g/dl (3.4-5.0); BLOOD UREA NITROGEN 13.3 mg/dL (7-18); CO2 32 mmol/L (21-32); GLUCOSE,RANDOM 172 mg/dL (74-106); MAGNESIUM 2.2 mg/dL (1.8-2.4)
[2021-04-07 09:18] LABS: URIC ACID 2.7 mg/dL (2.6-7.2)
[2021-04-07 09:19] LABS: CREATININE 0.4 mg/dL (0.55-1.3); PHOSPHOROUS 3.3 mg/dL (2.5-4.9); SGOT/AST 31 U/L (15-37); SGPT/ALT 75 U/L (13-61)
[2021-04-07 09:20] LABS: TOT PROT 5.4 g/dl (6.4-8.2)
[2021-04-07 09:21] LABS: BILIRUBIN,TOTAL 0.9 mg/dL (0.2-1)
[2021-04-07 09:22] LABS: ALK PHOS 221 U/L (45-117)
[2021-04-07 09:23] LABS: ANION GAP 10 MMOL/L (8-16)
[2021-04-07] MEDS: LIDOCAINE 5% TOPICAL PATCH TP SCH (09:44)
[2021-04-07] MEDS: PANTOPRAZOLE SODIUM 40 MG VIAL IVPB SCH (09:45)
[2021-04-07] MEDS: POLYETHYLENE GLYCOL (HEALTHYLAX) 3350 17 GM PACKET PO SCH (09:45)
[2021-04-07] MEDS: cloNIDine HCL 0.1 MG TABLET PO SCH (09:45)
[2021-04-07] MEDS: ALLOPURINOL 300 MG TABLET (FP) PO SCH (09:45)
[2021-04-07] MEDS: ENOXAPARIN NA (PORCINE) 40 MG/0.4 ML DISP.SYRIN SQ SCH (09:45)
[2021-04-07] MEDS: AMINO ACIDS/PROTEIN HYDROLYS 30 ML LIQUID.PKT PO SCH ×2 (09:45→18:23)
[2021-04-07] MEDS: DEXAMETHASONE 4 MG TABLET (FP) PO SCH (09:45)
[2021-04-07] MEDS: amLODIPine BESYLATE 10 MG TABLET (FP) PO SCH (09:45)
[2021-04-07] MEDS: propRANOLol HCL 10 MG TABLET PO SCH ×2 (09:46→23:54)
[2021-04-07] MEDS: levETIRAcetam 500 MG/5 ML INJECTION VIAL IVPB SCH ×2 (09:47→21:21)
[2021-04-07 09:51] LABS: ANISOCYTOSIS 0; HELMET CELLS 0; HOWELL-JOLLY BODIES 0; MACROCYTOSIS 0; OVALOCYTE 0; PLATELET ESTIMATE DECREASED; ROULEAU 0; SICKELED CELLS 0; TARGET CELLS 0; TEAR DROP CELLS 0; TOXIC GRANULATION 0
[2021-04-07] MEDS: BUDESONIDE/FORMETEROL FUMARATE 160/4.5 mcg INHALER IH SCH ×2 (09:54→21:04)
[2021-04-07] MEDS: TIOTROPIUM BROMIDE 2.5 MCG (SPIRIVA) RESPIMAT INHALER IH SCH (09:56)
[2021-04-07] MEDS ORDERED: POTASSIUM CHLORIDE TABS 20 MEQ TABLET.ER (FP) PO ONE (09:57)
[2021-04-07] MEDS: KCL 10 MEQ IVPB 10 MEQ/100 ML INFUS.BAG IVPB SCH ×3 (10:24→17:19)
[2021-04-07] MEDS: REMDESIVIR 100 MG in SODIUM CHLORIDE 250 ML IVPB SCH (14:08)
[2021-04-07] MEDS: LIDOCAINE PATCH REMOVAL MC SCH (21:04)
[2021-04-07 21:23] VITALS: BP 160/74; PULSE 104; TEMP 98.1
[2021-04-08] MEDS: SENNOSIDES 8.6MG TABLET (FP) PO SCH (00:08)
[2021-04-08] MEDS: LISINOPRIL 20 MG TABLET PO SCH (00:08)
[2021-04-08] MEDS: DEXAMETHASONE 4 MG TABLET (FP) PO SCH (00:08)
[2021-04-08] MEDS: cloNIDine HCL 0.1 MG TABLET PO SCH (00:08)
[2021-04-08] MEDS: oxyCODONE HCL 5 MG TABLET PO PRN (01:25)
== END 2021-04-08 03:55 | disposition short-term general hospital (02) | DRG 180 ==
LOC: JER 20:22 → JERBED 03-25 03:14 → J7W 03-25 19:14
PROVIDERS: ADMIT Internal Medicine; ATTEND Internal Medicine
PROC: 3E0333Z Introduction of Anti-inflammatory into Peripheral Vein, Percutaneous Approach (ICD-10-PCS; 2021-03-24)
PROC: 02HV33Z Insertion of Infusion Device into Superior Vena Cava, Percutaneous Approach (ICD-10-PCS; principal; 2021-03-31)
PROC: B518ZZA Fluoroscopy of Superior Vena Cava, Guidance (ICD-10-PCS; 2021-03-31)
PROC: 3E03305 Introduction of Other Antineoplastic into Peripheral Vein, Percutaneous Approach (ICD-10-PCS; 2021-04-03)
PROC: XW033E5 Introduction of Remdesivir Anti-infective into Peripheral Vein, Percutaneous Approach, New Technology Group 5 (ICD-10-PCS; 2021-04-03)
DX: C34.90 Malignant neoplasm of unspecified part of unspecified bronchus or lung (principal); U07.1 COVID-19; G93.6 Cerebral edema; C78.7 Secondary malignant neoplasm of liver and intrahepatic bile duct; C79.70 Secondary malignant neoplasm of unspecified adrenal gland; C79.31 Secondary malignant neoplasm of brain; J44.1 Chronic obstructive pulmonary disease with (acute) exacerbation; J98.11 Atelectasis; I10 Essential (primary) hypertension; R91.8 Other nonspecific abnormal finding of lung field; R79.89 Other specified abnormal findings of blood chemistry; R59.0 Localized enlarged lymph nodes; E11.9 Type 2 diabetes mellitus without complications
CPT/HCPCS: 36415; 36569; 70470-TC; 70553-TC; 71045-TC-FY; 71250-TC; 77001-TC-FY; 80048; 80053; 82550; 82728; 82955; 82962; 83036; 83615; 83735; 84100; 84484; 84550; 85025; 85379; 85610; 85730; 86140; 86704; 86705; 86707; 87340; 87350; 87517; 87902; 93005; 93010; 93970-TC; 94640; 97116-GP; 97162-GP; 99285-25; A9579; C1751; C9399; C9803; J0735; J1100; J1453; J1644; J2469; M0247; Q9967; U0003; U0005

== ENCOUNTER 2021-05-04 06:59 | Inpatient (IN) | payer OTHER ==
[2021-05-04] MEDS ORDERED: MIDAZOLAM HCL 5 MG/1 ML Single Dose Vial IVPUSH ONE (07:08)
[2021-05-04] MEDS ORDERED: MIDAZOLAM HCL 2 MG/2 ML SINGLE DOSE VIAL ONE ×2 (07:09→07:13)
[2021-05-04] MEDS ORDERED: MIDAZOLAM IN 0.9 % SOD.CHLORID 1 MG/1 ML PLAST..BAG ONE (07:15)
[2021-05-04] MEDS ORDERED: NOREPINEPHRINE BITARTRATE 16,000 MCG in DEXTROSE 5%-WATER - 16,000 MCG/500 ML INFUS.BAG IVPB SCH (07:15)
[2021-05-04] MEDS ORDERED: MIDAZOLAM IN 0.9 % SOD.CHLORID 100 MG/100 ML PLAST..BAG IVPB SCH (07:15)
[2021-05-04 07:52] VITALS: BMI 21.2
[2021-05-04] MEDS ORDERED: FENTANYL NS IVPB 500 MCG/100 ML BAG IVPB ONE (08:15)
[2021-05-04] MEDS ORDERED: FENTANYL NS IVPB 500 MCG/100 ML BAG IVPB SCH (08:15)
[2021-05-04 08:19] LABS: CHLORIDE 102 mmol/L (98-107); SODIUM 141 mmol/L (136-145)
[2021-05-04 08:21] LABS: CALCIUM 8.2 mg/dL (8.5-10.1)
[2021-05-04 08:22] LABS: ALBUMIN 1.7 g/dl (3.4-5.0); BLOOD UREA NITROGEN 26.3 mg/dL (7-18); CO2 26 mmol/L (21-32); GLUCOSE,RANDOM 95 mg/dL (74-106)
[2021-05-04 08:25] LABS: CREATININE 0.8 mg/dL (0.55-1.3); SGOT/AST 298 U/L (15-37); SGPT/ALT 313 U/L (13-61)
[2021-05-04 08:27] LABS: BILIRUBIN,TOTAL 0.6 mg/dL (0.2-1)
[2021-05-04 08:28] LABS: ALK PHOS 86 U/L (45-117)
[2021-05-04 08:29] LABS: HEMATOCRIT 22.7 % (35.4-49); HEMOGLOBIN 7.3 GM/dL (11.7-16.9); MCH 30.6 pg (25.7-33.7); MCHC 32.3 g/dl (32.0-35.9); MEAN CELL VOLUME 94.8 fl (80-96); MEAN PLT VOLUME 8.9 fl (7.5-11.1); PLATELET COUNT 45 10^3/uL (134-434); RBC 2.39 M/mm3 (4.00-5.60)
[2021-05-04 08:33] LABS: WHITE BLOOD COUNT 0.6 K/mm3 (4.0-10.0)
[2021-05-04 08:34] LABS: ANION GAP 14 MMOL/L (8-16); LACTIC ACID 9.3 mmol/L (0.4-2.0)
[2021-05-04 08:42] LABS: URINE APPEARANCE CLEAR; URINE BILIRUBIN NEGATIVE (NEGATIVE); URINE COLOR YELLOW; URINE GLUCOSE (UA) NEGATIVE (NEGATIVE); URINE KETONE NEGATIVE (NEGATIVE); URINE LEUK ESTERASE NEGATIVE (NEGATIVE); URINE NITRITE NEGATIVE (NEGATIVE); URINE PROTEIN TRACE (NEGATIVE); URINE UROBILINOGEN 0.2 mg/dL (0.2-1.0)
[2021-05-04] MEDS ORDERED: POTASSIUM CHLORIDE ORAL LIQUID 20 MEQ/15 ML PO ONE (08:49)
[2021-05-04] MEDS ORDERED: POTASSIUM CHLORIDE ORAL LIQUID 20 MEQ/15 ML ONE (08:54)
[2021-05-04] MEDS ORDERED: VASOPRESSIN 20 UNITS/ML VIAL IV ONE (09:06)
[2021-05-04] MEDS ORDERED: VASOPRESSIN 40 UNITS/100 ML BAG IV SCH (09:15)
[2021-05-04 09:34] LABS: ACTIVATED PTT 33.2 SECONDS (25.2-36.5); INR 1.57 (0.83-1.09); PROTHROMBIN TIME (PATIENT) 18.1 SEC (9.7-13.0)
[2021-05-04 09:48] LABS: ANISOCYTOSIS 0; CORRECTED WBC 0.51 K/mm3; HELMET CELLS 0; HOWELL-JOLLY BODIES 0; MACROCYTOSIS 0; OVALOCYTE 0; PLATELET ESTIMATE DECREASED; ROULEAU 0; SICKELED CELLS 0; TARGET CELLS 0; TEAR DROP CELLS 0; TOXIC GRANULATION 0
[2021-05-04 11:01] LABS: ARTERIAL BLD GAS O2 SATURATION 96.6 % (95-98); ARTERIAL BLOOD GAS BASE EXCESS 0.3 mmol/L (-2-2); ARTERIAL BLOOD GAS PO2 100.2 mmHg (80-100); ARTERIAL BLOOD GAS pH 7.271 (7.350-7.450)
[2021-05-04 11:03] LABS: ALLENS TEST POSITIVE
[2021-05-04 11:04] LABS: VENT MODE A/C; VENT RATE 12
[2021-05-04] MEDS ORDERED: PHENYLEPHRINE HCL 10 MG/1 ML SINGLE DOSE VIAL ONE (11:32)
[2021-05-04] MEDS: MUPIROCIN 2% TOPICAL OINTMENT FOR DECOLONIZATION NS SCH ×2 (11:54→21:30)
[2021-05-04] MEDS ORDERED: LACTATED RINGERS SOLUTION 1,000 ML/1,000 ML INFUS.BAG IV STA (12:09)
[2021-05-04] MEDS ORDERED: HYDROCORTISONE SOD SUCCINATE 100 MG/2 ML VIAL IVPB ONE (12:23)
[2021-05-04] MEDS ORDERED: FLUDROCORTISONE ACETATE 0.1 MG TABLET (FP) PO SCH (12:30)
[2021-05-04] MEDS ORDERED: PHENYLEPHRINE NS PREMIX 50,000 MCG/500 ML BAG CVP SCH (12:45)
[2021-05-04] MEDS ORDERED: HYDROCORTISONE SOD SUCCINATE 100 MG/2 ML VIAL IVPUSH SCH ×2 (13:00→21:00)
[2021-05-04] MEDS ORDERED: VANCOMYCIN 1 GRAM (PRE-DOCKED) 1,000 MG/250 ML BAG IVPB ONE (15:30)
[2021-05-04] MEDS ORDERED: LACTATED RINGERS SOLUTION 1,000 ML/1,000 ML INFUS.BAG IV SCH ×2 (15:30→22:45)
[2021-05-04] MEDS ORDERED: DEXTROSE 5%-WATER - 50 ML IVPB ONE (15:51)
[2021-05-04] MEDS ORDERED: PIPERACILLIN/TAZOBACTAM 3.375 GM VIAL IVPB ONE (15:51)
[2021-05-04] MEDS: PIPERACILLIN/TAZOB 3.375 GM 3.375 GM in DEXTROSE 5%-WATER - 50 ML IVPB SCH ×2 (15:52→18:31)
[2021-05-04] MEDS ORDERED: DOPAMINE 400 MG/D5W - 400,000 MCG/250 ML INFUS.BAG IVPB SCH (18:00)
[2021-05-04 18:26] VITALS: TEMP 96.8
[2021-05-04] MEDS ORDERED: CHLORHEXIDINE GLUCONATE 4% CLEANSER FOR DECOLONIZATION TP SCH (22:00)
[2021-05-04] MEDS ORDERED: MEROPENEM 1 GM in DEXTROSE 5%-WATER 100 ML IVPB SCH (22:15)
[2021-05-04] MEDS ORDERED: LACTATED RINGERS SOLUTION 1000 ML INFUS.BAG IV ONE (22:26)
[2021-05-04] MEDS ORDERED: MEROPENEM 1 GM VIAL (RESTRICTED TO ID) IVPB ONE (22:38)
[2021-05-04] MEDS ORDERED: DEXTROSE 5%-WATER 100 ML IVPB ONE (22:38)
[2021-05-05 00:45] VITALS: BP 62/41; PULSE 96
[2021-05-05] MEDS ORDERED: EPINEPHrine 1:10,000 (P-F SYR) 1 MG/10 ML DISP.SYRIN ONE (01:48)
[2021-05-05 02:17] LABS: ALK PHOS 62 U/L (45-117); ANION GAP 18 MMOL/L (8-16); BILIRUBIN,TOTAL 0.5 mg/dL (0.2-1); BLOOD UREA NITROGEN 37.4 mg/dL (7-18); CHLORIDE 108 mmol/L (98-107); CO2 16 mmol/L (21-32); CREATININE 1.4 mg/dL (0.55-1.3); GLUCOSE,RANDOM 102 mg/dL (74-106); MAGNESIUM 1.9 mg/dL (1.8-2.4); SGPT/ALT 869 U/L (13-61); SODIUM 142 mmol/L (136-145); TOT PROT 2.9 g/dl (6.4-8.2)
[2021-05-05 02:18] LABS: ALBUMIN 1.1 g/dl (3.4-5.0); CALCIUM 6.1 mg/dL (8.5-10.1); SGOT/AST 968 U/L (15-37)
== END 2021-05-05 03:24 | disposition expired | DRG 296 ==
LOC: JER 06:59 → JERBED 09:08 → JICU 10:23
PROVIDERS: ADMIT Internal Medicine Pulmonary Disease; ATTEND Internal Medicine Pulmonary Disease
PROC: 05HM33Z Insertion of Infusion Device into Right Internal Jugular Vein, Percutaneous Approach (ICD-10-PCS; principal; 2021-05-04)
PROC: 0D9670Z Drainage of Stomach with Drainage Device, Via Natural or Artificial Opening (ICD-10-PCS; 2021-05-04)
PROC: 5A12012 Performance of Cardiac Output, Single, Manual (ICD-10-PCS; 2021-05-04)
PROC: 5A1935Z Respiratory Ventilation, Less than 24 Consecutive Hours (ICD-10-PCS; 2021-05-04)
DX: I46.9 Cardiac arrest, cause unspecified (principal); J96.00 Acute respiratory failure, unspecified whether with hypoxia or hypercapnia; C34.90 Malignant neoplasm of unspecified part of unspecified bronchus or lung; C78.7 Secondary malignant neoplasm of liver and intrahepatic bile duct; C79.31 Secondary malignant neoplasm of brain; C78.89 Secondary malignant neoplasm of other digestive organs; C79.72 Secondary malignant neoplasm of left adrenal gland; C79.71 Secondary malignant neoplasm of right adrenal gland; E87.2 Acidosis; D61.818 Other pancytopenia; J44.9 Chronic obstructive pulmonary disease, unspecified; I10 Essential (primary) hypertension; E11.9 Type 2 diabetes mellitus without complications; I95.9 Hypotension, unspecified
CPT/HCPCS: 36415; 36600; 71045-TC-FY; 80053; 81003; 82803; 82962; 83605; 83735; 84484; 85025; 85610; 85730; 87040; 87086; 87186; 87804; 93005; 93010; 99291; C9803; J3490; U0003; U0005